=== PATIENT | female | born 1955 | race Caucasian/White ===

== ENCOUNTER → 2017-01-28 | Outpatient (CLI) | payer OTHER ==
[2016-02-28 08:41] VITALS: BP 141/82
[~2017-01-28] MED LIST: ATOR20TA PO; CHOL10003 PO; CYAN10005 PO; FLUT12AE2 IH; HYDR-2678 PO; LISI10TA2 PO
--- NOTE | 2017-01-28 16:46 | RAD ---
DATE: 01/28/2017 EXAM: DIGITAL SCREEN BILAT W/CAD HISTORY: Screening mammogram COMPARISON: Diagnostic right breast mammogram 02/28/2016, bilateral screening mammogram 01/24/2016. This study was interpreted with the benefit of Computerized Aided Detection (CAD). The breast parenchyma shows scattered fibroglandular densities. Breast parenchyma level B. FINDINGS: The biopsy clip in the right breast. No suspicious mass, calcification or architectural distortion. No sigmoid change from prior examination. IMPRESSION: No mammographic evidence to suggest malignancy. BI-RADS 2, benign. Recommend routine screening mammogram in 12 months. BI-RADS CATEGORY: 2 BENIGN FINDING(S) RECOMMENDED FOLLOW-UP: 12M 12 MONTH FOLLOW-UP PQRS compliance statement: Patient information was entered into a reminder system with a target due date January 2018 for the next mammogram. Mammography is a sensitive method for finding small breast cancers, but it does not detect them all and is not a substitute for careful clinical examination. A negative mammogram does not negate a clinically suspicious finding and should not result in delay in biopsying a clinically suspicious abnormality. "Our facility is accredited by the [employer] Mammography [employer]."
== END | disposition home or self-care (01) ==
LOC: MAMMO 09:56
PROVIDERS: ATTEND Family Medicine
DX: Z12.31 Encounter for screening mammogram for malignant neoplasm of breast (principal)
CPT/HCPCS: G0202; 77067

== ENCOUNTER → 2018-07-06 | Outpatient (CLI) | payer OTHER ==
[2016-02-28 08:41] VITALS: BP 141/82
--- NOTE | 2018-07-06 14:58 | RAD ---
MRI Lumbar Spine without contrast History: Worsening chronic low back pain Technique: Multiplanar, multi sequential noncontrast MR imaging was performed of the lumbar spine. Comparison: None Findings: Lumbar vertebral body stature is maintained. There is very mild grade 1 anterior spondylolisthesis L4-5. Conus terminates at L1. There is no significant marrow edema of the vertebral bodies other than trace L5-S1 endplate edema on the left likely reactive/degenerative in etiology. Mild linear fat signal intensity in the central aspect of the thecal sac such as at L2 through L4-5 is likely due to fatty filum terminale. There is yyzz-ln-vbtbajsr degenerative disc disease L2-3 and L3-4 and to a somewhat lesser degree at L4-5 and L5-S1. There is very mild lumbar levoscoliosis. L2-L3: There is minimal bulge. There is small hemangioma of the right posterior L2 vertebral body. There is minimal buckling of the ligamentum flavum and facet degenerative change. There is mild narrowing of the far lateral recesses bilaterally. Neural foramina are overall adequate. L3-L4: There is minimal disc osteophyte complex and bulge. There is mild buckling of the ligamentum flavum, also mild right facet degenerative change. There is mild narrowing of the far right lateral recess. Neural foramina are overall adequate. Minimal left extraforaminal bulge is near the extraforaminal left L3 nerve root without significant impingement. L4-L5: There is mild to moderate facet degenerative change and buckling of the ligamentum flavum. There is very mild partial uncovering of the posterior aspect of the disc due to spondylolisthesis. There is xofa-cf-asssoymu narrowing of the right lateral recess, minimally on the left. There is mild narrowing of the central canal. Left neural foramen is adequate, mild inferior narrowing of the right neural foramen with bulge near the undersurface exiting right L4 nerve root without displacement. L5-S1: There is minimal buckling of the ligamentum flavum and facet degenerative change. There is very shallow protrusion in the far right lateral recess and inferior right neural foramen superimposed on minimal disc osteophyte complex, no significant impingement or displacement descending right S1 nerve root, spinal canal not significantly narrowed. There is mild narrowing of the right inferior neural foramen by disc osteophyte complex, left neural foramen overall adequate. Impression: 1. There is lkzr-my-jqqkagqm narrowing of the right lateral recess at L4-5, other minimal narrowing of the lateral recesses such as on the left at L4-5 and on the right at L3-4 and bilaterally at L2-3 as described. There is cfdm-jg-tvszstbw degenerative disc disease L2-3 and L3-4 and to lesser degree more inferior levels. There is mild narrowing of the right L5-S1 and L4-5 neural foramina. 2. There is very mild grade 1 anterior spondylolisthesis L4-5, facet degenerative change greatest at the same level. Electronically signed by: Ben Siddiqi MD (07/06/2018 2:54 PM) [facility]
== END | disposition home or self-care (01) ==
LOC: MRI 13:49
PROVIDERS: ATTEND Family Medicine
DX: M51.36 Other intervertebral disc degeneration, lumbar region (principal); M43.16 Spondylolisthesis, lumbar region; M25.78 Osteophyte, vertebrae; D18.09 Hemangioma of other sites
CPT/HCPCS: 72148

== ENCOUNTER → 2018-08-28 | Outpatient (CLI) | payer OTHER ==
[2016-02-28 08:41] VITALS: BP 141/82
[~2018-08-28] MED LIST changes: +ATOR10TA PO; +HYDR-2761 PO; +LISI-334 PO
--- NOTE | 2018-08-29 02:43 | PAIN ---
DATE OF SERVICE: 08/28/2018 INITIAL CONSULTATION FOR PAIN CLINIC CHIEF COMPLAINT: Low back and bilateral lower extremity pain. HISTORY OF PRESENT ILLNESS: This is a 63-year-old female who presents with pain in the bilateral low back as well as into the hips and into posterior gluteus and into the anterior thighs and lateral thighs bilaterally, essentially right equal to left, somewhat worse on the right, but most times right is fairly equal to left by her report. The patient reports it has been going on since about the year 1999, gradually increasing, not a result of any specific injury or action that she is aware of, but has been getting worse over the years to the point where it is not going away. She has tried some physical therapy in the past, also some chiropractic treatment in the past. She is still doing exercises and stretching and strengthening, was not helping the pain very much. She is trying to walk daily and also becoming more difficult because of the pain in the low back and the bilateral lower extremities. The patient reports pain radiates into the anterior thighs, medial thighs, across the low back, essentially right equal to left, becoming more constant, changes during the day, worse with walking, standing, especially with climbing stairs, also has some significant knee pain as well. The patient reports pain wakes her from sleep at least once a night, does not affect her bowel or bladder control, but does affect her ability to walk fairly significantly. She is not using any assistive devices, however. The patient did have MRI scan of the lumbar spine, which shows on 07/06/2018, showing jldj-af-bsnisvgy narrowing of the right lateral recess at L4-L5 and other minimal narrowing of the lateral recess such as on the left L4-L5 and on the right L3-L4, bilaterally L2-L3, fffn-le-joykcmow degenerative disk disease L2-L3, L3-L4 and lesser degree at more inferior level with mild narrowing of the right L5-S1 and L4-L5 neural foramina. The patient rates her disability rating from 0-10, 10 being the worst, is a 7 with family and home responsibilities and occupation, 9 with recreation, 5 with social activity, 0 with sexual behavior, self-care and life support activities. The patient reports no loss of function in lower extremities, but significant fatigability, especially with walking, standing, better with sitting or lying down initially, but again is awakening her from sleep. PAST MEDICAL HISTORY: Significant for hearing loss, wears eyeglasses, hypertension, hyperlipidemia, stage 2 kidney disease, arthritis, fibromyalgia, osteoarthritis in the knees. PREVIOUS SURGERY: Include hysterectomy in 1980s, appendectomy, right wrist surgery with a cyst removal, and right breast biopsy, which was benign. CURRENT MEDICATIONS: Include hydrocodone, lisinopril, Lipitor, vitamin D. ALLERGIES: The patient has no known drug allergies. FAMILY HISTORY: Significant for diabetes, breast cancer, bone cancer and kidney disease. SOCIAL HISTORY: The patient does not drink alcohol. Does not use any illegal, illicit or recreational drugs. Does smoke maybe once a week, much less than a pack a day. The patient reports she is single. Lives locally in [place], [place]. REVIEW OF SYSTEMS: The patient's review of systems is positive for those items mentioned in history of present illness. All systems reviewed, otherwise negative. It is complete, full and well documented on the patient's chart. PHYSICAL EXAMINATION: VITAL SIGNS: Today, the patient's blood pressure is 151/89, pulse 94, respirations 16, temperature is 98.2 degrees Fahrenheit, height 5 feet 2 inches, weight is 192 pounds. GENERAL: The patient is awake, alert, oriented, appropriate, very pleasant demeanor. HEENT: Shows normocephalic, atraumatic. Extraocular movements are intact and symmetrical. Oral cavity: Mucous membranes moist and pink. Dentition is intact. NECK: Shows anterior throat supple without palpable lymphadenopathy noted. Swallow reflex is symmetrical. CHEST: Shows normal on inspection. Breath sounds are clear to auscultation bilaterally. HEART: Shows S1, S2 clear. No murmurs auscultated. ABDOMEN: Soft, nontender, nondistended. No palpable organomegaly is noted. No rebound or guarding demonstrated. BACK: Shows spine grossly in the midline. Normal appearing thoracic kyphosis, cervical lordotic curvature and lumbar lordotic curvature. The patient's back shows good rotational motion both laterally greater than 10 degrees right and left as well as extension greater than 10 degrees, forward flexion 45 degrees, without significant difficulty or pain reported. No tenderness over the spinous processes, sacrum or sacroiliac regions. EXTREMITIES: Lower extremities show deep tendon reflexes at 1+ in the patellar and tendo calcaneus tendons are equal. Motor exam is approximately 4 on a scale of 5, but equal and symmetrical dorsiflexion, extension, and 4/5 with quadriceps and hamstring flexion and symmetrical as well. Peripheral pulses are 1+ posterior tibia. No peripheral edema is noted. Straight leg raise noted to be negative for reproduction of radicular symptoms bilaterally. Gaenslen's and Jaxon's maneuvers are negative bilaterally as well. Peripheral pulses are 1+. No peripheral edema is noted. Lower extremities are warm and dry to touch, equal in color and appearance. The patient is able to stand, has difficulty staying on her toes and reports significant pain in her knees as well as her low back, but is able to do so. The patient walks with a slight shuffling gait, does not appear to favor the right or left lower extremity significantly and not using any assistive devices to ambulate such as canes or walkers. SKIN: Shows warm and dry, good turgor. No edema. No sores, rashes or bruising. IMPRESSION: This is a 63-year-old female with: 1. Long history of low back, bilateral lower extremity pain in a radicular fashion following an L4-L5 dermatomal distribution, right essentially equal to left. 2. MRI scan of lumbar spine as noted. 3. Arthritis. 4. Hypertension. 5. Kidney disease. PLAN: Options were discussed with the patient including conservative medical management, physical therapy, interventional techniques and she would like to pursue interventional techniques as she is doing physical therapies on her own, doing some exercises, stretching and walking daily without significant improvement and becoming more difficult for her to do these things. We discussed a lumbar epidural steroid injection using description as well as anatomical models to describe the procedure. The patient will wait for preauthorization with her insurance provider for a lumbar epidural steroid injection at L4-L5 level for L4-L5 radiculopathy bilaterally. The patient will continue doing stretching and strengthening at the best of her ability as well as walking as tolerated. The patient will return to the clinic in approximately 1 week. We will plan on lumbar epidural steroid injection at that time. MORAIMA CELAYA MD DR: BRITTANEY/myra JOB#: [id number] / [id number]
== END | disposition home or self-care (01) ==
LOC: PNCL 09:08
PROVIDERS: ATTEND Anesthesiology
DX: M79.605 Pain in left leg (principal); M79.604 Pain in right leg; M54.5 Low back pain; M19.90 Unspecified osteoarthritis, unspecified site; I10 Essential (primary) hypertension; N28.9 Disorder of kidney and ureter, unspecified; E78.5 Hyperlipidemia, unspecified; M17.0 Bilateral primary osteoarthritis of knee
CPT/HCPCS: G0463

== ENCOUNTER → 2018-09-04 | Outpatient (CLI) | payer OTHER ==
[2016-02-28 08:41] VITALS: BP 141/82
[~2018-09-04] MED LIST changes: +IOHEXOL 180 MG/ML 10 ML VIAL. ONE; +methylPREDNISolone ACETATE 40 MG/ML VIAL. ONE
--- NOTE | 2018-09-04 19:20 | PAIN ---
DATE OF SERVICE: 09/04/2018 DIAGNOSES: Lumbar radiculopathy with lumbar degenerative disk disease. HISTORY OF PRESENT ILLNESS: The patient is a 63-year-old female who returns for followup status post initial evaluation and preauthorization for epidural steroid injection. She has obtained that now and would like to proceed, still pain in the low back and bilateral lower extremities. The patient reports no new motor or sensory deficits, no new changes or other concerns. The patient reports her pain is still across the low back into the bilateral lower extremities, lateral thighs, lateral anterior thighs, medial thighs, medial lower legs essentially right equal to left. The patient reports it is a 10 on a scale of 10 at its worst, 8 on average and 3 at its least and is an 8 today. The patient reports it is becoming more constant, aching, dull, sharp at times and shooting into the legs and again tingling and burning across the low back with some cramping as well. The patient reports it does not awaken her from sleep, much worse with walking, standing, changing positions, better with sitting or lying down. The patient reports no new motor or sensory deficits, no new bowel or bladder incontinence or other complaints. PHYSICAL EXAMINATION: VITAL SIGNS: The patient's blood pressure 156/108, pulse 94, respirations 18, temperature is 97.9 degrees Fahrenheit, height is 5 feet 2 inches, weight 190 pounds. GENERAL: The patient is awake, alert, oriented, appropriate, very pleasant demeanor. HEENT: Head shows normocephalic, atraumatic. Extraocular movements intact and symmetrical. Oral cavity, mucous membranes are moist and pink. Dentition is intact. NECK: Shows anterior throat supple without palpable lymphadenopathy noted. Swallow reflex is symmetrical. CHEST: Shows normal with inspection. Breath sounds clear to auscultation bilaterally. HEART: Shows S1, S2 clear. No murmurs auscultated. ABDOMEN: Soft, obese, nontender, nondistended. No palpable organomegaly is noted. No rebound or guarding demonstrated. BACK: Shows spine grossly in the midline. Normal appearing thoracic kyphosis and lumbar lordotic curvature. Lumbar paraspinous musculature shows symmetrical on inspection, with palpation shows some moderate tenderness diffusely bilaterally, but only diffusely without radiation. The patient shows good rotational motion of lumbar spine, both laterally as well as extension and flexion without difficulty. EXTREMITIES: Lower extremities show deep tendon reflexes at 1+ in the patellar and tendo calcaneus tendons are equal. Motor exam is approximately 4 on a scale of 5, but equal and symmetrical with dorsiflexion, extension bilaterally. Peripheral pulses are 1+. No peripheral edema is noted. Options were discussed with the patient. The patient's old chart was reviewed as her current medication regimen and updated. Current review of systems is updated today as well. We will proceed with a lumbar epidural steroid injection today with fluoroscopic guidance. Risks were again discussed including, but not limited to bleeding, infection, possibility of epidural hematoma, subsequent neurological compromise, dural puncture headache, spinal cord and/or nerve damage, side effects of steroid medication and poor results regarding pain control. The patient understands and wished to proceed. The patient will return to clinic in approximately 2 weeks for followup, was counseled on return appointment, activity level and side effects to be aware of. DIAGNOSIS: Lumbar radiculopathy with lumbar degenerative disk disease. PROCEDURE: Lumbar epidural steroid injection, translaminar approach L4-L5 level using C-arm fluoroscopic guidance under sterile prep and drape using local anesthetic. MEDICATION INJECTED: A total of 120 mg Depo-Medrol plus 10 mL of preservative-free normal saline and 2 mL of Isovue for contrast. CONDITION AT DISCHARGE: Stable. The patient tolerated procedure well, had no complications. MORAIMA CELAYA MD DR: BRITTANEY/myra JOB#: [id number] / [id number]
== END | disposition home or self-care (01) ==
LOC: PNCL 08:26
PROVIDERS: ATTEND Anesthesiology
DX: M51.16 Intervertebral disc disorders with radiculopathy, lumbar region (principal)
CPT/HCPCS: 62323; J1030; Q9965

== ENCOUNTER → 2018-09-25 | Outpatient (CLI) | payer OTHER ==
[2016-02-28 08:41] VITALS: BP 141/82
[~2018-09-25] MED LIST changes: +methylPREDNISolone ACETATE 80 MG/ML VIAL. ONE
--- NOTE | 2018-09-26 03:17 | PAIN ---
DATE OF SERVICE: 09/25/2018 PROGRESS NOTE FOR PAIN CLINIC DIAGNOSES: Lumbar radiculopathy with lumbar degenerative disk disease. HISTORY OF PRESENT ILLNESS: The patient is a 63-year-old female who returns for followup status post lumbar epidural steroid injection x 1. The patient reports at least 75% improved in the low back and right lower extremity. The patient reports she has been increasing her activity with greater ease and comfort and has been sleeping well, does not awaken her from sleep. She has been increasing her distance walking, doing work activities, household activities, on her feet longer, standing longer, sitting longer, doing much better. She is very pleased with her progress. The patient reports still some pain in the low back radiating to the posterior gluteus, posterior lateral thigh, lateral anterior thighs, worse on the right than the left but again very much reduced. The patient reports now as an aching pain, is sharp, only very seldomly and some cramping in the right leg but otherwise doing very well. The patient reports her pain is at 5 on a scale of 10 at its worst in the last week, 3 on average and 0 at its least and is a 3 today. The patient reports no new motor or sensory deficits and no new bowel or bladder incontinence or other complaints. PHYSICAL EXAMINATION: VITAL SIGNS: The patient's blood pressure is 150/89, pulse 85, respirations 16 and temperature 98.0 degrees Fahrenheit. Weight is 191 pounds. GENERAL: The patient is awake, alert, oriented, appropriate and very pleasant demeanor. HEENT: Head shows normocephalic and atraumatic. Extraocular movements are intact and symmetrical. Oral cavity: Mucous membranes moist and pink. Dentition is intact. NECK: Shows anterior throat supple without palpable lymphadenopathy noted. Swallow reflex symmetrical. CHEST: Shows normal on inspection. Breath sounds clear to auscultation bilaterally. HEART: Shows S1 and S2 clear. No murmurs auscultated. ABDOMEN: Soft, nontender and nondistended. No palpable organomegaly is noted. No rebound or guarding demonstrated. BACK: Shows spine grossly in the midline. Normal appearing thoracic kyphosis and some minor flattening of lumbar lordotic curvature. Lumbar paraspinous muscle shows symmetrical on inspection, with palpation shows some mild tenderness but only very diffusely in the low lumbar distribution bilaterally. The patient shows good rotational motion of the lumbar spine, both laterally as well as extension and flexion greater than 10 degrees and forward flexion at 45 degrees, right and left lateral rotation at 10 degrees without difficulty. EXTREMITIES: Lower extremities show deep tendon reflexes 1+ in the patellar and tendo-calcaneus tendons. Motor exam is strong with approximately 4 on a scale 5 but equal and symmetrical with dorsiflexion and extension. Peripheral pulses are 1+ posterior tibial. No peripheral edema is noted. Options were discussed with the patient. The patient's old chart was reviewed as well as her current medication regimen updated. Current review of systems updated today as well. We will proceed with a second in a series of lumbar epidural steroid injection today with fluoroscopic guidance. Risks were again discussed including, but not limited to bleeding, infection, possibility of epidural hematoma, subsequent neurologic compromise, dural puncture, headaches, spinal cord and/or nerve damage, side effects of steroid medication and poor results regarding pain control. The patient understands and wished to proceed. The patient will return to the clinic in approximately 2 weeks for followup, was counseled as to on return appointment, activity level and side effects to be aware of. DIAGNOSIS: Lumbar radiculopathy with lumbar degenerative disk disease. PROCEDURE: Lumbar epidural steroid injection, translaminar approach, L4-L5 level using C-arm fluoroscopic guidance under sterile prep and drape using local anesthetic. MEDICATION INJECTED: A total of 120 mg Depo-Medrol plus 10 mL of preservative-free normal saline and 2 mL of contrast. CONDITION AT DISCHARGE: Stable. The patient tolerated the procedure well and had no complications. MORAIMA CELAYA MD DR: BRITTANEY/myra JOB#: [id number] / [id number]
== END | disposition home or self-care (01) ==
LOC: PNCL 08:08
PROVIDERS: ATTEND Anesthesiology
DX: M51.16 Intervertebral disc disorders with radiculopathy, lumbar region (principal)
CPT/HCPCS: 62323; J1030; J1040; Q9965